=== PATIENT | female | born 1965 | race Two or more races ===

== ENCOUNTER 2020-07-11 16:33 | Emergency (ER) | payer SELFPAY ==
[~2020-07-11] VITALS: Ht 149.9 cm; Wt 47.6 kg
[2020-07-11 20:04] VITALS: BP 88/61
== END 2020-07-11 20:55 | disposition home or self-care (01) ==
LOC: ER 16:33
DX: S16.1XXA Strain of muscle, fascia and tendon at neck level, initial encounter (principal); X58.XXXA Exposure to other specified factors, initial encounter; Y93.89 Activity, other specified; Y92.89 Other specified places as the place of occurrence of the external cause; Y99.8 Other external cause status
CPT/HCPCS: 73030